=== PATIENT | female | born 1980 | race Caucasian/White ===

== ENCOUNTER 2019-11-10 09:37 | Inpatient (IN) | payer OTHER, SELFPAY ==
[~2019-11-10] VITALS: Ht 154.9 cm; Wt 71.7 kg
[2019-11-10 09:37] VITALS: BP 130/1
[~2019-11-10 09:37] MED LIST: IBUP-44 PO
[2019-11-10 10:52] LABS: BASOPHILS % (AUTO) 0.5 % (0.0-2.0); HEMATOCRIT 43.6 % (36-48); HEMOGLOBIN 14.2 g/dL (12.0-16.0); LYMPHOCYTES # (AUTO) 0.5 K/uL (2.5-16.5); MEAN CORPUSCULAR HEMOGLOBIN 28 pg (27-31); MEAN CORPUSCULAR HGB CONC 33 g/dL (33-37); MEAN CORPUSCULAR VOLUME 86.7 fL (80-94); MONOCYTES # (AUTO) 0.3 K/uL (0.8-1.0); MONOCYTES % (AUTO) 4.7 % (1.7-9.3); NEUTROPHILS # (AUTO) 5.1 K/uL (1.8-7.7); PLATELET COUNT (AUTO) 124 K/uL (140-450); RED BLOOD CELL COUNT(AUTO) 5.03 MIL/uL (4.20-5.40); RED CELL DISTRIBUTION WIDTH 15.2 % (11.6-13.7); WHITE BLOOD COUNT (AUTO) 5.9 K/uL (4.8-10.8)
[2019-11-10 11:10] LABS: LACTATE DEHYDROGENASE 252 U/L (81-234)
[2019-11-10] MEDS ORDERED: AZITHROMYCIN 250 MG TAB PO ONE (11:10)
[2019-11-10 11:11] LABS: BILIRUBIN,URINE NEGATIVE (NEGATIVE); BLOOD, URINE 3+ (NEGATIVE); COLOR,URINE YELLOW (YELLOW); LEUKOCYTE ESTERASE ,URINE NEGATIVE (NEGATIVE); NITRITE, URINE NEGATIVE (NEGATIVE); UGLUCOSE NEGATIVE (NEGATIVE)
[2019-11-10 11:12] LABS: PROTHROMBIN TIME 9.8 secs (10.8-13.4)
[2019-11-10 11:15] LABS: APPEARANCE,URINE CLOUDY (CLEAR)
[2019-11-10 11:20] LABS: LYMPHOCYTES % (AUTO) 8.7 % (20.5-51.1); NEUTROPHILS % (AUTO) 86.1 % (42.2-75.2)
[2019-11-10 11:21] LABS: ALBUMIN 3.1 g/dL (3.4-5.0); ANION GAP 13.9 (8-16); CARBON DIOXIDE 25.7 mmol/L (21-32); CREATININE 0.9 mg/dL (0.6-1.3); POTASSIUM 3.6 mmol/L (3.5-5.1); TOTAL BILIRUBIN 0.4 mg/dL (0.0-1.0)
[2019-11-10] MEDS ORDERED: cefTRIAXone 1,000 MG VIAL ONE (11:26)
[2019-11-10 11:30] LABS: WBC,URINE 0-5 /HPF (0-5)
[2019-11-10 11:31] LABS: URINE AMORPHOUS URATE 1+ /HPF (None Seen)
[2019-11-10 11:36] LABS: C-REACTIVE PROTEIN QUANT 10.5 mg/dL (0.0-0.9)
[2019-11-10] MEDS ORDERED: HYDROcodone/APAP 7.5/325 MG 1 TAB PO PRN (11:50)
[2019-11-10] MEDS ORDERED: ONDANSETRON 4 MG/2 ML VIAL IM/IVP PRN (11:50)
[2019-11-10] MEDS ORDERED: DOCUSATE SODIUM 100 MG GELCAP PO PRN (11:50)
[2019-11-10] MEDS ORDERED: HYDROXYCHLOROQUINE 200 MG TAB PO SCH ×2 (12:45→23:00)
[2019-11-10] MEDS ORDERED: ZINC SULF 220 MG CAP PO SCH (13:00)
[2019-11-10] MEDS ORDERED: ASCORBIC ACID 500 MG TAB PO SCH (13:00)
[2019-11-10 15:24] LABS: FREE T4 (FREE THYROXINE) 1.12 ng/dL (0.76-1.46); MAGNESIUM 2.1 mg/dL (1.8-2.4); PHOSPHORUS 2.4 mg/dL (2.5-4.9); THYROID STIMULATING HORMONE 0.59 uIU/mL (0.34-3.74)
[2019-11-10 15:28] LABS: BARBITURATE, URINE NEGATIVE ng/ml (NEG <=200); BENZODIAZEPINE, URINE NEGATIVE ng/mL (NEG <=200); CANNABINOID, URINE NEGATIVE ng/mL (NEG <=50); COCAINE, URINE NEGATIVE ng/mL (NEG <=300); OPIATE, URINE NEGATIVE ng/mL (NEG <=2000); PHENCYCLIDINE SCREEN,URINE NEGATIVE ng/mL (NEG <=25)
[2019-11-10 16:00] VITALS: BP 129/76
[2019-11-10] MEDS: ACETAMINOPHEN 325 MG TAB PO PRN (16:03)
[2019-11-10 20:00] VITALS: BP 117/74
[2019-11-10] MEDS: ENOXAPARIN 40 MG/0.4 ML SYR SUBQ SCH (21:09)
[2019-11-11] VITALS: BP 110/71
[2019-11-11 04:00] VITALS: BP 108/81
[2019-11-11 07:19] LABS: BASOPHILS % (AUTO) 0.4 % (0.0-2.0); HEMATOCRIT 45.2 % (36-48); HEMOGLOBIN 14.8 g/dL (12.0-16.0); LYMPHOCYTES # (AUTO) 0.8 K/uL (2.5-16.5); LYMPHOCYTES % (AUTO) 12.3 % (20.5-51.1); MEAN CORPUSCULAR HEMOGLOBIN 29 pg (27-31); MEAN CORPUSCULAR HGB CONC 33 g/dL (33-37); MEAN CORPUSCULAR VOLUME 87.3 fL (80-94); MONOCYTES # (AUTO) 0.3 K/uL (0.8-1.0); MONOCYTES % (AUTO) 3.9 % (1.7-9.3); NEUTROPHILS # (AUTO) 5.6 K/uL (1.8-7.7); NEUTROPHILS % (AUTO) 83.4 % (42.2-75.2); PLATELET COUNT (AUTO) 140 K/uL (140-450); RED BLOOD CELL COUNT(AUTO) 5.17 MIL/uL (4.20-5.40); RED CELL DISTRIBUTION WIDTH 15.4 % (11.6-13.7); WHITE BLOOD COUNT (AUTO) 6.8 K/uL (4.8-10.8)
[2019-11-11 08:00] VITALS: BP 110/77
[2019-11-11] MEDS ORDERED: AZITHROMYCIN 250 MG TAB PO SCH (09:00)
[2019-11-11] MEDS: ENOXAPARIN 40 MG/0.4 ML SYR SUBQ SCH ×2 (09:48→21:29)
[2019-11-11] MEDS: ZINC SULF 220 MG CAP PO SCH (09:49)
[2019-11-11] MEDS: ACETAMINOPHEN 325 MG TAB PO PRN ×2 (09:49→17:17)
[2019-11-11] MEDS: ASCORBIC ACID 500 MG TAB PO SCH (09:50)
[2019-11-11 10:44] LABS: ALBUMIN 2.9 g/dL (3.4-5.0); ANION GAP 11.8 (8-16); CARBON DIOXIDE 27.6 mmol/L (21-32); CREATININE 0.9 mg/dL (0.6-1.3); MAGNESIUM 2.1 mg/dL (1.8-2.4); PHOSPHORUS 2.7 mg/dL (2.5-4.9); POTASSIUM 4.4 mmol/L (3.5-5.1); TOTAL BILIRUBIN 0.4 mg/dL (0.0-1.0)
[2019-11-11] MEDS ORDERED: HYDROXYCHLOROQUINE 200 MG TAB PO SCH (11:00)
[2019-11-11] MEDS: ALBUTEROL HFA MDI 90 MCG/ACTUATION 8 GM INH PRN (11:05)
[2019-11-11 12:00] VITALS: BP 107/78
[2019-11-11] MEDS ORDERED: SODIUM PHOS / POTASSIUM PHOS 1 PKT PDR PO SCH (13:30)
[2019-11-11 16:00] VITALS: BP 131/81
[2019-11-11 20:00] VITALS: BP 99/59
[2019-11-12] VITALS: BP 131/77
[2019-11-12 04:00] VITALS: BP 111/74
[2019-11-12] MEDS: ACETAMINOPHEN 325 MG TAB PO PRN (06:59)
[2019-11-12 07:17] LABS: BASOPHILS % (AUTO) 0.5 % (0.0-2.0); HEMATOCRIT 44.3 % (36-48); HEMOGLOBIN 14.6 g/dL (12.0-16.0); LYMPHOCYTES # (AUTO) 0.5 K/uL (2.5-16.5); LYMPHOCYTES % (AUTO) 7.6 % (20.5-51.1); MEAN CORPUSCULAR HEMOGLOBIN 29 pg (27-31); MEAN CORPUSCULAR HGB CONC 33 g/dL (33-37); MEAN CORPUSCULAR VOLUME 86.8 fL (80-94); MONOCYTES # (AUTO) 0.3 K/uL (0.8-1.0); MONOCYTES % (AUTO) 4.4 % (1.7-9.3); NEUTROPHILS # (AUTO) 6.1 K/uL (1.8-7.7); NEUTROPHILS % (AUTO) 87.5 % (42.2-75.2); PLATELET COUNT (AUTO) 163 K/uL (140-450); RED CELL DISTRIBUTION WIDTH 15.4 % (11.6-13.7)
[2019-11-12 07:53] LABS: ALBUMIN 2.6 g/dL (3.4-5.0); ANION GAP 15.9 (8-16); CARBON DIOXIDE 24.2 mmol/L (21-32); CREATININE 0.9 mg/dL (0.6-1.3); MAGNESIUM 2.1 mg/dL (1.8-2.4); PHOSPHORUS 2.9 mg/dL (2.5-4.9); POTASSIUM 4.1 mmol/L (3.5-5.1); TOTAL BILIRUBIN 0.5 mg/dL (0.0-1.0)
[2019-11-12 08:00] VITALS: BP 121/69
[2019-11-12] MEDS: ENOXAPARIN 40 MG/0.4 ML SYR SUBQ SCH ×2 (09:44→22:00)
[2019-11-12] MEDS: ZINC SULF 220 MG CAP PO SCH (09:44)
[2019-11-12] MEDS: ASCORBIC ACID 500 MG TAB PO SCH (09:44)
[2019-11-12 12:00] VITALS: BP 115/69
[2019-11-12] MEDS ORDERED: COMMUNICATION ORDER MC ONE (13:30)
[2019-11-12] MEDS ORDERED: IVERMECTIN 3MG TAB PO SCH (14:00)
[2019-11-12 16:00] VITALS: BP 109/63
[2019-11-12 20:00] VITALS: BP 122/67
[2019-11-13] VITALS: BP 120/62
[2019-11-13 04:00] VITALS: BP 122/64
[2019-11-13 07:21] LABS: ALBUMIN 2.5 g/dL (3.4-5.0); CREATININE 0.7 mg/dL (0.6-1.3); MAGNESIUM 2.4 mg/dL (1.8-2.4); TOTAL BILIRUBIN 0.4 mg/dL (0.0-1.0)
[2019-11-13 07:41] LABS: BASOPHILS % (AUTO) 0.4 % (0.0-2.0); EOSINOPHILS % (AUTO) 0.5 % (0.0-4.0); HEMATOCRIT 46.2 % (36-48); HEMOGLOBIN 15.2 g/dL (12.0-16.0); LYMPHOCYTES # (AUTO) 0.7 K/uL (2.5-16.5); MEAN CORPUSCULAR HEMOGLOBIN 29 pg (27-31); MEAN CORPUSCULAR HGB CONC 33 g/dL (33-37); MEAN CORPUSCULAR VOLUME 87.3 fL (80-94); MONOCYTES # (AUTO) 0.3 K/uL (0.8-1.0); MONOCYTES % (AUTO) 5.2 % (1.7-9.3); NEUTROPHILS # (AUTO) 4.6 K/uL (1.8-7.7); NEUTROPHILS % (AUTO) 81.9 % (42.2-75.2); PLATELET COUNT (AUTO) 182 K/uL (140-450); RED BLOOD CELL COUNT(AUTO) 5.29 MIL/uL (4.20-5.40); RED CELL DISTRIBUTION WIDTH 15.1 % (11.6-13.7); WHITE BLOOD COUNT (AUTO) 5.6 K/uL (4.8-10.8)
[2019-11-13 08:00] VITALS: BP 114/60
[2019-11-13] MEDS: ZINC SULF 220 MG CAP PO SCH (09:44)
[2019-11-13] MEDS: ASCORBIC ACID 500 MG TAB PO SCH (09:45)
[2019-11-13] MEDS: ENOXAPARIN 40 MG/0.4 ML SYR SUBQ SCH ×2 (10:03→22:10)
[2019-11-13 12:00] VITALS: BP 118/80
[2019-11-13 16:00] VITALS: BP 124/82
[2019-11-13 20:00] VITALS: BP 133/99
[2019-11-14] VITALS: BP 99/64
[2019-11-14 04:00] VITALS: BP 102/70
[2019-11-14 06:33] LABS: BASOPHILS % (AUTO) 0.6 % (0.0-2.0); EOSINOPHILS % (AUTO) 0.5 % (0.0-4.0); HEMATOCRIT 45.1 % (36-48); LYMPHOCYTES # (AUTO) 0.6 K/uL (2.5-16.5); LYMPHOCYTES % (AUTO) 13.2 % (20.5-51.1); MEAN CORPUSCULAR HEMOGLOBIN 29 pg (27-31); MEAN CORPUSCULAR HGB CONC 33 g/dL (33-37); MEAN CORPUSCULAR VOLUME 86.1 fL (80-94); MONOCYTES # (AUTO) 0.3 K/uL (0.8-1.0); MONOCYTES % (AUTO) 7.6 % (1.7-9.3); NEUTROPHILS # (AUTO) 3.6 K/uL (1.8-7.7); NEUTROPHILS % (AUTO) 78.1 % (42.2-75.2); PLATELET COUNT (AUTO) 198 K/uL (140-450); RED BLOOD CELL COUNT(AUTO) 5.24 MIL/uL (4.20-5.40); RED CELL DISTRIBUTION WIDTH 14.9 % (11.6-13.7); WHITE BLOOD COUNT (AUTO) 4.6 K/uL (4.8-10.8)
[2019-11-14 07:42] LABS: ALBUMIN 2.5 g/dL (3.4-5.0); ANION GAP 12.6 (8-16); CARBON DIOXIDE 28.5 mmol/L (21-32); CREATININE 0.9 mg/dL (0.6-1.3); MAGNESIUM 2.2 mg/dL (1.8-2.4); PHOSPHORUS 3.7 mg/dL (2.5-4.9); POTASSIUM 4.1 mmol/L (3.5-5.1); TOTAL BILIRUBIN 0.5 mg/dL (0.0-1.0)
[2019-11-14] MEDS: ZINC SULF 220 MG CAP PO SCH (09:11)
[2019-11-14] MEDS: ASCORBIC ACID 500 MG TAB PO SCH (09:12)
[2019-11-14] MEDS: ENOXAPARIN 40 MG/0.4 ML SYR SUBQ SCH ×2 (09:13→21:27)
[2019-11-14 12:26] VITALS: BP 106/73
[2019-11-14 16:00] VITALS: BP 106/79
[2019-11-14 20:00] VITALS: BP 103/79
[2019-11-15] VITALS: BP 99/70
[2019-11-15 04:00] VITALS: BP 97/68
[2019-11-15 06:26] LABS: HEMATOCRIT 43.8 % (36-48); HEMOGLOBIN 14.4 g/dL (12.0-16.0); MEAN CORPUSCULAR HEMOGLOBIN 29 pg (27-31); MEAN CORPUSCULAR HGB CONC 33 g/dL (33-37); MEAN CORPUSCULAR VOLUME 86.7 fL (80-94); PLATELET COUNT (AUTO) 216 K/uL (140-450); RED BLOOD CELL COUNT(AUTO) 5.05 MIL/uL (4.20-5.40); RED CELL DISTRIBUTION WIDTH 14.6 % (11.6-13.7); WHITE BLOOD COUNT (AUTO) 4.2 K/uL (4.8-10.8)
[2019-11-15 06:58] LABS: EOSINOPHILS % (MANUAL) 1 % (0-4); LYMPHOCYTES % (MANUAL) 23 % (20-46); MONOCYTES % (MANUAL) 7 % (5-12)
[2019-11-15 07:17] LABS: ALBUMIN 2.6 g/dL (3.4-5.0); ANION GAP 12.3 (8-16); CARBON DIOXIDE 28.9 mmol/L (21-32); MAGNESIUM 2.1 mg/dL (1.8-2.4); PHOSPHORUS 3.2 mg/dL (2.5-4.9); POTASSIUM 4.2 mmol/L (3.5-5.1); TOTAL BILIRUBIN 0.5 mg/dL (0.0-1.0)
[2019-11-15 08:00] VITALS: BP 97/68
[2019-11-15] MEDS: ENOXAPARIN 40 MG/0.4 ML SYR SUBQ SCH ×2 (09:40→20:53)
[2019-11-15] MEDS: ASCORBIC ACID 500 MG TAB PO SCH (09:40)
[2019-11-15] MEDS: ZINC SULF 220 MG CAP PO SCH (09:40)
[2019-11-15 12:00] VITALS: BP 102/73
[2019-11-15 16:00] VITALS: BP 102/71
[2019-11-15 20:00] VITALS: BP 103/72
[2019-11-16] VITALS: BP 111/69
[2019-11-16 04:00] VITALS: BP 109/61
[2019-11-16 07:46] LABS: BASOPHILS % (AUTO) 0.3 % (0.0-2.0); EOSINOPHILS % (AUTO) 0.9 % (0.0-4.0); HEMATOCRIT 42.9 % (36-48); HEMOGLOBIN 14.3 g/dL (12.0-16.0); LYMPHOCYTES % (AUTO) 22.6 % (20.5-51.1); MEAN CORPUSCULAR HEMOGLOBIN 29 pg (27-31); MEAN CORPUSCULAR HGB CONC 33 g/dL (33-37); MEAN CORPUSCULAR VOLUME 85.9 fL (80-94); MONOCYTES # (AUTO) 0.5 K/uL (0.8-1.0); MONOCYTES % (AUTO) 12.2 % (1.7-9.3); NEUTROPHILS # (AUTO) 2.8 K/uL (1.8-7.7); PLATELET COUNT (AUTO) 215 K/uL (140-450); RED CELL DISTRIBUTION WIDTH 14.8 % (11.6-13.7); WHITE BLOOD COUNT (AUTO) 4.3 K/uL (4.8-10.8)
[2019-11-16 08:00] VITALS: BP 100/67
[2019-11-16 08:00] LABS: ALBUMIN 2.7 g/dL (3.4-5.0); ANION GAP 9.8 (8-16); CARBON DIOXIDE 31.2 mmol/L (21-32); CREATININE 0.9 mg/dL (0.6-1.3); MAGNESIUM 2.2 mg/dL (1.8-2.4); PHOSPHORUS 2.8 mg/dL (2.5-4.9); TOTAL BILIRUBIN 0.5 mg/dL (0.0-1.0)
[2019-11-16] MEDS: ENOXAPARIN 40 MG/0.4 ML SYR SUBQ SCH ×2 (09:07→21:17)
[2019-11-16] MEDS: ASCORBIC ACID 500 MG TAB PO SCH (09:10)
[2019-11-16] MEDS: ZINC SULF 220 MG CAP PO SCH (09:10)
[2019-11-16 12:00] VITALS: BP 97/63
[2019-11-16 16:00] VITALS: BP 98/67
[2019-11-16 20:00] VITALS: BP 95/66
[2019-11-17] VITALS: BP 96/65
[2019-11-17 04:00] VITALS: BP 107/62
[2019-11-17 07:04] LABS: BASOPHILS % (AUTO) 0.7 % (0.0-2.0); EOSINOPHILS # (AUTO) 0.1 K/uL (0-0.4); EOSINOPHILS % (AUTO) 1.4 % (0.0-4.0); HEMATOCRIT 41.1 % (36-48); HEMOGLOBIN 13.6 g/dL (12.0-16.0); LYMPHOCYTES # (AUTO) 0.8 K/uL (2.5-16.5); LYMPHOCYTES % (AUTO) 20.7 % (20.5-51.1); MEAN CORPUSCULAR HEMOGLOBIN 29 pg (27-31); MEAN CORPUSCULAR HGB CONC 33 g/dL (33-37); MEAN CORPUSCULAR VOLUME 86.3 fL (80-94); MONOCYTES # (AUTO) 0.5 K/uL (0.8-1.0); MONOCYTES % (AUTO) 12.7 % (1.7-9.3); NEUTROPHILS # (AUTO) 2.4 K/uL (1.8-7.7); NEUTROPHILS % (AUTO) 64.5 % (42.2-75.2); PLATELET COUNT (AUTO) 227 K/uL (140-450); RED BLOOD CELL COUNT(AUTO) 4.76 MIL/uL (4.20-5.40); RED CELL DISTRIBUTION WIDTH 14.6 % (11.6-13.7); WHITE BLOOD COUNT (AUTO) 3.8 K/uL (4.8-10.8)
[2019-11-17 07:22] LABS: ALBUMIN 2.7 g/dL (3.4-5.0); ANION GAP 9.3 (8-16); CARBON DIOXIDE 29.5 mmol/L (21-32); CREATININE 0.9 mg/dL (0.6-1.3); POTASSIUM 3.8 mmol/L (3.5-5.1); TOTAL BILIRUBIN 0.4 mg/dL (0.0-1.0)
[2019-11-17 08:00] VITALS: BP 84/54
[2019-11-17] MEDS: ZINC SULF 220 MG CAP PO SCH (08:43)
[2019-11-17] MEDS: ASCORBIC ACID 500 MG TAB PO SCH (08:43)
[2019-11-17] MEDS: ENOXAPARIN 40 MG/0.4 ML SYR SUBQ SCH ×2 (08:44→20:50)
[2019-11-17 11:28] VITALS: BP 103/66
[2019-11-17] MEDS: ALBUTEROL HFA MDI 90 MCG/ACTUATION 8 GM INH PRN (14:29)
[2019-11-17 16:00] VITALS: BP 96/62
[2019-11-17] MEDS: FUROSEMIDE 40 MG/4 ML VIAL IVP SCH (17:28)
[2019-11-17 20:00] VITALS: BP 95/66
[2019-11-18] VITALS: BP 97/61
[2019-11-18 04:00] VITALS: BP 91/61
[2019-11-18 05:39] LABS: BASOPHILS % (AUTO) 0.4 % (0.0-2.0); HEMATOCRIT 41.6 % (36-48); HEMOGLOBIN 13.7 g/dL (12.0-16.0); LYMPHOCYTES # (AUTO) 1.2 K/uL (2.5-16.5); LYMPHOCYTES % (AUTO) 29.5 % (20.5-51.1); MEAN CORPUSCULAR HEMOGLOBIN 29 pg (27-31); MEAN CORPUSCULAR HGB CONC 33 g/dL (33-37); MEAN CORPUSCULAR VOLUME 86.7 fL (80-94); MONOCYTES # (AUTO) 0.5 K/uL (0.8-1.0); MONOCYTES % (AUTO) 11.8 % (1.7-9.3); NEUTROPHILS # (AUTO) 2.4 K/uL (1.8-7.7); NEUTROPHILS % (AUTO) 57.3 % (42.2-75.2); PLATELET COUNT (AUTO) 254 K/uL (140-450); RED CELL DISTRIBUTION WIDTH 14.7 % (11.6-13.7); WHITE BLOOD COUNT (AUTO) 4.1 K/uL (4.8-10.8)
[2019-11-18 07:03] LABS: ALBUMIN 2.9 g/dL (3.4-5.0); ANION GAP 6.4 (8-16); CARBON DIOXIDE 31.1 mmol/L (21-32); CREATININE 0.9 mg/dL (0.6-1.3); POTASSIUM 3.5 mmol/L (3.5-5.1); TOTAL BILIRUBIN 0.4 mg/dL (0.0-1.0)
[2019-11-18 08:00] VITALS: BP 119/82
[2019-11-18] MEDS ORDERED: NACL 0.9% 500 ML IV SCH (08:35)
[2019-11-18] MEDS: FUROSEMIDE 40 MG/4 ML VIAL IVP SCH ×2 (09:00→17:00)
[2019-11-18] MEDS: ASCORBIC ACID 500 MG TAB PO SCH (09:22)
[2019-11-18] MEDS: ZINC SULF 220 MG CAP PO SCH (09:22)
[2019-11-18] MEDS: ENOXAPARIN 40 MG/0.4 ML SYR SUBQ SCH ×2 (09:29→21:15)
[2019-11-18 12:00] VITALS: BP 95/65
[2019-11-18 16:00] VITALS: BP 96/63
[2019-11-18 20:00] VITALS: BP 101/69
[2019-11-19] VITALS: BP 90/56
[2019-11-19 04:00] VITALS: BP 92/53
[2019-11-19 06:10] LABS: BASOPHILS % (AUTO) 0.3 % (0.0-2.0); EOSINOPHILS % (AUTO) 0.7 % (0.0-4.0); HEMOGLOBIN 13.5 g/dL (12.0-16.0); LYMPHOCYTES # (AUTO) 1.5 K/uL (2.5-16.5); LYMPHOCYTES % (AUTO) 35.3 % (20.5-51.1); MEAN CORPUSCULAR HEMOGLOBIN 29 pg (27-31); MEAN CORPUSCULAR HGB CONC 33 g/dL (33-37); MONOCYTES # (AUTO) 0.5 K/uL (0.8-1.0); NEUTROPHILS # (AUTO) 2.2 K/uL (1.8-7.7); NEUTROPHILS % (AUTO) 52.7 % (42.2-75.2); PLATELET COUNT (AUTO) 257 K/uL (140-450); RED BLOOD CELL COUNT(AUTO) 4.71 MIL/uL (4.20-5.40); RED CELL DISTRIBUTION WIDTH 14.4 % (11.6-13.7); WHITE BLOOD COUNT (AUTO) 4.2 K/uL (4.8-10.8)
[2019-11-19 06:53] LABS: ALBUMIN 2.7 g/dL (3.4-5.0); ANION GAP 10.8 (8-16); CARBON DIOXIDE 30.3 mmol/L (21-32); CREATININE 0.8 mg/dL (0.6-1.3); POTASSIUM 4.1 mmol/L (3.5-5.1); TOTAL BILIRUBIN 0.4 mg/dL (0.0-1.0)
[2019-11-19 06:54] LABS: MAGNESIUM 2.2 mg/dL (1.8-2.4); PHOSPHORUS 3.4 mg/dL (2.5-4.9)
[2019-11-19 08:00] VITALS: BP 95/60
[2019-11-19] MEDS: ZINC SULF 220 MG CAP PO SCH (09:43)
[2019-11-19] MEDS: ASCORBIC ACID 500 MG TAB PO SCH (09:43)
[2019-11-19] MEDS: FUROSEMIDE 40 MG/4 ML VIAL IVP SCH ×2 (09:43→17:22)
[2019-11-19] MEDS: ENOXAPARIN 40 MG/0.4 ML SYR SUBQ SCH ×2 (09:51→21:47)
[2019-11-19 12:00] VITALS: BP 90/58
[2019-11-19] MEDS ORDERED: MUPIROCIN 2% OINT 22 GM TUBE TP SCH ×2 (12:05→12:11)
[2019-11-19 16:00] VITALS: BP 98/66
[2019-11-19 20:00] VITALS: BP 99/71
[2019-11-19] MEDS: MUPIROCIN 2% OINT 22 GM TUBE TP SCH (21:46)
[2019-11-20] VITALS: BP 90/62
[2019-11-20 04:00] VITALS: BP 94/58
[2019-11-20 06:03] LABS: BASOPHILS % (AUTO) 0.4 % (0.0-2.0); EOSINOPHILS % (AUTO) 0.5 % (0.0-4.0); HEMOGLOBIN 13.3 g/dL (12.0-16.0); LYMPHOCYTES # (AUTO) 1.7 K/uL (2.5-16.5); MEAN CORPUSCULAR HEMOGLOBIN 29 pg (27-31); MEAN CORPUSCULAR HGB CONC 33 g/dL (33-37); MONOCYTES # (AUTO) 0.5 K/uL (0.8-1.0); MONOCYTES % (AUTO) 9.1 % (1.7-9.3); NEUTROPHILS # (AUTO) 3.1 K/uL (1.8-7.7); PLATELET COUNT (AUTO) 298 K/uL (140-450); RED BLOOD CELL COUNT(AUTO) 4.65 MIL/uL (4.20-5.40); RED CELL DISTRIBUTION WIDTH 14.6 % (11.6-13.7); WHITE BLOOD COUNT (AUTO) 5.3 K/uL (4.8-10.8)
[2019-11-20 06:22] LABS: ALBUMIN 2.9 g/dL (3.4-5.0); ANION GAP 9.9 (8-16); CARBON DIOXIDE 31.7 mmol/L (21-32); CREATININE 0.9 mg/dL (0.6-1.3); PHOSPHORUS 3.7 mg/dL (2.5-4.9); POTASSIUM 3.6 mmol/L (3.5-5.1); TOTAL BILIRUBIN 0.5 mg/dL (0.0-1.0)
[2019-11-20 08:00] VITALS: BP 98/67
[2019-11-20] MEDS: FUROSEMIDE 40 MG/4 ML VIAL IVP SCH ×2 (09:16→17:00)
[2019-11-20] MEDS: ASCORBIC ACID 500 MG TAB PO SCH (09:16)
[2019-11-20] MEDS: ZINC SULF 220 MG CAP PO SCH (09:17)
[2019-11-20] MEDS: MUPIROCIN 2% OINT 22 GM TUBE TP SCH ×2 (09:18→21:05)
[2019-11-20] MEDS: ENOXAPARIN 40 MG/0.4 ML SYR SUBQ SCH ×2 (09:39→21:02)
[2019-11-20 12:00] VITALS: BP 89/64
[2019-11-20 16:00] VITALS: BP 93/62
[2019-11-20 20:00] VITALS: BP 89/57
[2019-11-21] VITALS: BP 83/55
[2019-11-21 04:00] VITALS: BP 93/61
[2019-11-21 06:01] LABS: BASOPHILS % (AUTO) 0.7 % (0.0-2.0); EOSINOPHILS % (AUTO) 0.3 % (0.0-4.0); HEMATOCRIT 39.6 % (36-48); HEMOGLOBIN 13.4 g/dL (12.0-16.0); LYMPHOCYTES # (AUTO) 1.5 K/uL (2.5-16.5); LYMPHOCYTES % (AUTO) 29.4 % (20.5-51.1); MEAN CORPUSCULAR HEMOGLOBIN 29 pg (27-31); MEAN CORPUSCULAR HGB CONC 34 g/dL (33-37); MEAN CORPUSCULAR VOLUME 85.9 fL (80-94); MONOCYTES # (AUTO) 0.5 K/uL (0.8-1.0); MONOCYTES % (AUTO) 9.5 % (1.7-9.3); NEUTROPHILS # (AUTO) 3.1 K/uL (1.8-7.7); NEUTROPHILS % (AUTO) 60.1 % (42.2-75.2); PLATELET COUNT (AUTO) 297 K/uL (140-450); RED BLOOD CELL COUNT(AUTO) 4.61 MIL/uL (4.20-5.40); RED CELL DISTRIBUTION WIDTH 14.5 % (11.6-13.7); WHITE BLOOD COUNT (AUTO) 5.2 K/uL (4.8-10.8)
[2019-11-21 06:53] LABS: ALBUMIN 3.1 g/dL (3.4-5.0); ANION GAP 9.7 (8-16); CARBON DIOXIDE 32.1 mmol/L (21-32); CREATININE 0.9 mg/dL (0.6-1.3); POTASSIUM 3.8 mmol/L (3.5-5.1); TOTAL BILIRUBIN 0.5 mg/dL (0.0-1.0)
[2019-11-21 06:58] LABS: MAGNESIUM 2.2 mg/dL (1.8-2.4); PHOSPHORUS 3.7 mg/dL (2.5-4.9)
[2019-11-21 08:00] VITALS: BP 96/69
[2019-11-21] MEDS: FUROSEMIDE 40 MG/4 ML VIAL IVP SCH (09:00)
[2019-11-21] MEDS: ACETAMINOPHEN 325 MG TAB PO PRN (09:19)
[2019-11-21] MEDS: ENOXAPARIN 40 MG/0.4 ML SYR SUBQ SCH (09:21)
[2019-11-21] MEDS: ASCORBIC ACID 500 MG TAB PO SCH (09:23)
[2019-11-21] MEDS: MUPIROCIN 2% OINT 22 GM TUBE TP SCH (09:23)
[2019-11-21] MEDS: ZINC SULF 220 MG CAP PO SCH (09:25)
[2019-11-21 12:00] VITALS: BP 105/75
[2019-11-21 12:12] VITALS: BP 105/73
[2019-11-21] MEDS ORDERED: VITC500 PO (13:53)
[2019-11-21] MEDS ORDERED: ZINC220C28 PO (13:53)
[2019-11-21] MEDS ORDERED: LACT10CA1 PO (13:54)
[2019-11-21] MEDS ORDERED: BACTO TP (14:19)
== END 2019-11-21 15:00 | disposition home or self-care (01) | DRG 871 ==
LOC: EEVIPCON 09:37 → MED 09:37 → MMU 11:50
PROVIDERS: ADMIT General Practice; ATTEND General Practice
DX: A41.9 Sepsis, unspecified organism (principal); U07.1 COVID-19; J96.01 Acute respiratory failure with hypoxia; J12.89 Other viral pneumonia; E43 Unspecified severe protein-calorie malnutrition; E66.2 Morbid (severe) obesity with alveolar hypoventilation; D69.6 Thrombocytopenia, unspecified; E83.39 Other disorders of phosphorus metabolism; Z68.29 Body mass index [BMI] 29.0-29.9, adult; L01.09 Other impetigo; Z90.49 Acquired absence of other specified parts of digestive tract
CPT/HCPCS: 36415; 36600; 71045; 80053; 80305; 81001; 81025; 82150; 82550; 82728; 82803; 83036; 83605; 83615; 83690; 83735; 83880; 84100; 84439; 84443; 84484; 85025; 85379; 85384; 85610; 85651; 85730; 86140; 87040; 87081; 87086; 93005; 99291; J0696; J1650; J1940; J3535; J7030; J7060; Q0092

== ENCOUNTER 2020-04-08 10:27 | Emergency (ER) | payer OTHER, SELFPAY ==
[~2020-04-08] VITALS: Ht 157.5 cm; Wt 68.0 kg
[~2020-04-08 10:27] MED LIST changes: +BACTO TP; -IBUP-44 PO; +LACT10CA1 PO; +VITC500 PO; +ZINC220C28 PO
[2020-04-08 10:37] VITALS: BP 139/86
[2020-04-08] MEDS ORDERED: ACETAMINOPHEN 325 MG TAB PO ONE (11:30)
[2020-04-08 11:56] LABS: APPEARANCE,URINE HAZY (CLEAR); BILIRUBIN,URINE NEGATIVE (NEGATIVE); BLOOD, URINE 3+ (NEGATIVE); COLOR,URINE YELLOW (YELLOW); LEUKOCYTE ESTERASE ,URINE 2+ (NEGATIVE); NITRITE, URINE POSITIVE (NEGATIVE); UGLUCOSE NEGATIVE (NEGATIVE)
[2020-04-08 12:36] LABS: RBC,URINE 0-5 /HPF (0-5); WBC,URINE TOO MANY TO COUNT /HPF (0-5)
[2020-04-08 12:54] VITALS: BP 127/82
== END 2020-04-08 12:55 | disposition home or self-care (01) ==
LOC: MED 10:27
DX: N12 Tubulo-interstitial nephritis, not specified as acute or chronic (principal); Z79.899 Other long term (current) drug therapy
CPT/HCPCS: 81001; 81025; 87086; 87186; 99283

== ENCOUNTER 2021-09-10 01:15 | Emergency (ER) | payer SELFPAY ==
[~2021-09-10] VITALS: Ht 152.7 cm; Wt 76.4 kg
[2021-09-10 01:22] VITALS: BP 142/91
--- NOTE | 2021-09-10 01:27 | NUR ---
PT IN RESTROOM FOR URINE COLLECTION.
--- NOTE | 2021-09-10 01:29 | NUR ---
PT SENT TO LOBBY, WAITING FOR BED.
[2021-09-10 01:39] LABS: APPEARANCE,URINE CLOUDY (CLEAR); BILIRUBIN,URINE NEGATIVE (NEGATIVE); BLOOD, URINE 2+ (NEGATIVE); COLOR,URINE YELLOW (YELLOW); LEUKOCYTE ESTERASE ,URINE 3+ (NEGATIVE); NITRITE, URINE NEGATIVE (NEGATIVE); UGLUCOSE NEGATIVE (NEGATIVE)
[2021-09-10 01:55] LABS: RBC,URINE 11-20 (MOD) /HPF (0-5)
--- NOTE | 2021-09-10 02:15 | NUR ---
PT TAKEN TO BED #6
[2021-09-10] MEDS ORDERED: KETOROLAC 30 MG/ML VIAL IM ONE (02:35)
[2021-09-10] MEDS ORDERED: cefTRIAXone 1,000 MG in LIDOCAINE MPF 1% 2.1 ML IM ONE (02:35)
[2021-09-10] MEDS ORDERED: CEPH-588 PO (02:38)
[2021-09-10] MEDS ORDERED: NAPR-54 PO (02:38)
[2021-09-10] MEDS ORDERED: PYR100 PO (02:38)
[2021-09-10] MEDS ORDERED: LIDOCAINE MPF 1% 5 ML ONE (02:59)
[2021-09-10] MEDS ORDERED: cefTRIAXone 1,000 MG VIAL ONE (02:59)
[2021-09-10 03:27] VITALS: BP 135/79
--- NOTE | 2021-09-10 03:27 | NUR ---
Patient discharged with v/s stable. Written and verbal after care instructions given and explained. Patient alert, oriented and verbalized understanding of instructions. Ambulatory with steady gait. All questions addressed prior to discharge. ID band removed. Patient advised to follow up with PMD. Rx of KELEX, NAROXEN, PYRIDIUM given. Opportunity to ask questions provided and answered.
== END 2021-09-10 03:27 | disposition home or self-care (01) ==
LOC: MED 01:15
DX: N39.0 Urinary tract infection, site not specified (principal); Z79.899 Other long term (current) drug therapy; Z90.49 Acquired absence of other specified parts of digestive tract
CPT/HCPCS: 81001; 81025; 87086; 96372; 99284; J0696; J1885; J2001